=== PATIENT | male | born 1980 | race Caucasian/White ===

== ENCOUNTER 2023-07-08 15:56 | Emergency (ER) | payer SELFPAY ==
[~2023-07-08] VITALS: Ht 187.9 cm; Wt 99.8 kg
[2023-07-08] MEDS ORDERED: PERCOCET 5-3251 EACH PO (17:07)
== END 2023-07-08 17:17 | disposition home or self-care (01) ==
LOC: ED 15:56
DX: S42.492A Other displaced fracture of lower end of left humerus, initial encounter for closed fracture (principal); X50.1XXA Overexertion from prolonged static or awkward postures, initial encounter; Y93.72 Activity, wrestling; Y92.39 Other specified sports and athletic area as the place of occurrence of the external cause; Y99.8 Other external cause status